=== PATIENT | male | born 1950 | race Asian ===

== ENCOUNTER 2023-05-31 08:35 | Emergency (ER) | payer OTHER, SELFPAY ==
[2023-05-31 08:58] VITALS: BP 108/57
--- NOTE | 2023-05-31 11:56 | ED.GENMED ---
History of Present Illness
General
Chief Complaint: Nose Bleed
Source: patient and family
Exam Limitations: none
Time Seen by Provider: 05/31/23 10:07
Nursing documentation reviewed up to this point in time: agreed with
Travel History
Have you had any contact with someone who has COVID-19?: No
Do you have any symptoms of coronavirus? Fever > 100 degrees, chills, cough, shortness of breath, sore throat, loss of taste or smell, muscle aches, or headache?: No
History of Present Illness
History of Present Illness:
72-year-old male past medical history of hypertension hyperlipidemia heart disease status post stent presenting to the emergency department today with concerns of intermittent nosebleeds over the past few days has had similar episodes in the past
but usually go away fully after brief episode. Takes aspirin but no other blood or antiplatelet medications. Denies any headache nausea vomiting numbness weakness or additional concerns denies large-volume bleeding.
Review of Systems
Review of Systems
Allergies reviewed?: Yes
All Other Systems: ROS reviewed and negative except as documented in HPI and ROS
Phy Exam
Physical Exam
Physical Exam:
GENERAL: Alert , in no apparent distress
EYE: pupils equal and reactive
NECK: Supple, no significant adenopathy.
ENT: Dried blood in the right nostril otherwise normal left nostril. No blood to the posterior pharynx no active bleed o/p clr, mmm.
CARDIAC: Regular rate and rhythm .
LUNGS: Clear breath sounds bilaterally, no acute respiratory distress, no wheezes/rales/rhonchi
ABDOMEN: Soft, without focal tenderness, no r/g, no cvat
NEUROLOGICAL: Alert and oriented, no focal neuro deficits
SKIN: Warm and dry, skin intact.
MUSCULOSKELETAL: No edema, well perfused.
PSYCH: Normal and appropriate interaction.
Course
Orders/Labs/Results
Orders:
Orders
05/31/23 13:19
Acetaminophen [Tylenol] 1,000 mg PO NOW STA
Vital Signs
Initial and Last Documented VS:
Initial Vital Signs
Temp Pulse Resp BP Pulse Ox
98.2 F 91 20 108/57 100
05/31/23 08:58 05/31/23 08:58 05/31/23 08:58 05/31/23 08:58 05/31/23 08:58
Last Documented Vital Signs
Temp Pulse Resp BP Pulse Ox
98.2 F 91 20 108/57 100
05/31/23 08:58 05/31/23 08:58 05/31/23 08:58 05/31/23 08:58 05/31/23 08:58
Procedures
Nosebleed
Drug treatment: Lidocaine and Epinephrine
Treatment: local pressure applied, Silver nitrate cautery and other (Silver nitrate attempted, patient did have ongoing bleeding therefore anterior Rhino Rocket was placed. Patient observed for roughly 1 hour with slowly improving bleed.)
Post treatment bleeding: still some oozing
MDM/Problems Addressed
MDM/Problems Addressed:
72-year-old male presenting to the emergency department today with concerns of intermittent nosebleed over the past 2 days denies large-volume denies any injuries. Here patient has no active bleeding but does have an area of abrasion to the right
nasal septum. No posterior pharynx bleeding normal left nostril appear to be consistent with anterior bleed. Initially given lidocaine with epinephrine packing then silver nitrate applied to the area of likely bleeding. Patient then had bleeding
after a few minutes of silver nitrate. Considering this patient then was packed with anterior packing. He was observed for roughly an hour with resolution of bleeding. Case was discussed with ENT of that I will follow him up in 2 days for removal
and reassessment. Otherwise stable for outpatient management return precautions given.
*Critical Care Note
Total Time (30-74mins, 75-104mins- exclusive of procedures): Not Applicable
ED Attending Note
-
Portions of this chart may have been created with voice recognition software.� Occasional wrong word or��sound alike� substitutions may have occurred due to the inherent limitations of voice recognition software.
Discharge Plan
Departure
Patient Disposition: Home (Routine Discharge)
Date of Disposition: 05/31/23
Time of Disposition: 11:59
Patient with high blood pressure during this ER visit?: No
Condition: Good
Covid-19: Not Applicable
Discharge Problem:
Anterior epistaxis
Instructions: Nosebleeds (DC)
Referrals:
Lokesh Chatman MD [Family Provider] -
Tommy Garay MD [Active] - As needed
Activity Restrictions/Additional Instructions:
You came to the emergency department today with concerns of right-sided nosebleed. This was initially cauterized but then this required packing. Please leave the packing in place and follow-up with ENT in 2 days. Please call to set up an
appointment. Return to the emergency department sooner for any worsening, new or concerning symptoms.
Interventions
Interventions:
*ED COVID-19 Vaccine History Last Done: 05/31/23 08:58
ED-EENT Assessment Last Done: 05/31/23 12:02
Discharge Date and Time
Print Language: DIVEHI
[2023-05-31] MEDS: TYLENOL 1000 MG PO (13:28)
== END 2023-05-31 14:10 | disposition home or self-care (01) ==
LOC: EMR 08:35
PROVIDERS: EMERGENCY PHYSICIAN Emergency Medicine; FAMILY PHYSICIAN Internal Medicine
DX: R04.0 Epistaxis (principal); I10 Essential (primary) hypertension; E78.5 Hyperlipidemia, unspecified
CPT/HCPCS: 99283